=== PATIENT | female | born 1930 | race Asian ===

== ENCOUNTER 2017-06-29 07:47 | Day surgery (SDC) | payer MEDICARE, OTHER ==
[~2017-06-29 07:47] MED LIST: SOD CHLORIDE 0.9% 1,000 ML IV
[2017-06-29] MEDS: VANCOMYCIN 1 GM 250 ML IVPB (09:59)
[2017-06-29] MEDS ORDERED: MEPERIDINE 25 MG INJ IV (12:30)
[2017-06-29] MEDS ORDERED: PROCHLORPERAZINE 10 MG INJ IV (12:30)
[2017-06-29] MEDS ORDERED: HYDROmorphONE (0.2 MG/ML) 10ML SYG IV (12:30)
[2017-06-29] MEDS ORDERED: ONDANSETRON 4 MG INJ IV (12:30)
[2017-06-29] MEDS ORDERED: DIPHENHYDRAMINE 50 MG INJ IV (12:30)
[2017-06-29] MEDS ORDERED: FENTAnyl 50 MCG/ML VIAL (12:51)
[2017-06-29] MEDS ORDERED: ETOMIDATE 20 MG INJ (12:57)
[2017-06-29] MEDS ORDERED: ONDANSETRON 4 MG INJ (12:57)
[2017-06-29] MEDS ORDERED: FAMOTIDINE 20 MG INJ (12:57)
[2017-06-29] MEDS ORDERED: HYDROCODONE/APAP (7.5/325) TAB PO (13:30)
[2017-06-29] MEDS ORDERED: EPHEDrine SULFATE 50 MG/5 ML SYG (13:34)
[2017-06-29] MEDS: FENTAnyl 50 MCG/ML VIAL IV (14:01)
[2017-06-29] MEDS: LABETALOL HCL 20MG INJ IV (14:59)
[2017-06-29] MEDS: HYDROmorphONE (0.2 MG/ML) 10ML SYG IV (15:00)
[2017-06-29] MEDS: hydrALAzine 20 MG INJ IV (16:37)
== END 2017-06-29 16:35 | disposition home or self-care (01) ==
LOC: SDS 07:47
DX: D05.12 Intraductal carcinoma in situ of left breast (principal); I10 Essential (primary) hypertension; E11.9 Type 2 diabetes mellitus without complications
CPT/HCPCS: 19301; 71045; 82962; 88307; 88341; 88342; 93005